=== PATIENT | female | born 1985 | race Caucasian/White ===

== ENCOUNTER 2016-12-09 09:50 | Emergency (ER) | payer MEDICAID ==
[2016-12-09 11:16] LABS: BASOPHIL % 0.5 % (0-2); PLATELET COUNT 246 x10^3mcL (130-400)
[2016-12-09 11:21] LABS: RED CELL DISTRIBUTION WIDTH 17.3 % (11.5-14.5)
[2016-12-09 11:23] LABS: CALCIUM 8.4 mg/dL (8.5-10.1); CARBON DIOXIDE 28.7 mmol/L (21-32); CHLORIDE SERUM 107 mmol/L (98-107); CREATININE SERUM 0.6 mg/dL (0.6-1.0); GFR1 > 60 mL/min; GLUCOSE SERUM 76 mg/dL (74-106); POTASSIUM SERUM 3.9 mmol/L (3.5-5.1); SODIUM SERUM 141 mmol/L (136-145)
[2016-12-09 11:28] LABS: ALBUMIN 3.7 g/dL (3.4-5.0); ALKALINE PHOSPHATASE 49 U/L (46-116); ALT/SGPT 24 U/L (14-59); AST/SGOT 14 U/L (15-37); BILIRUBIN TOTAL 0.4 mg/dL (0.20-1.00); TOTAL PROTEIN, SERUM 7.8 g/dL (6.4-8.2)
[2016-12-09 12:48] VITALS: BP 121/88
== END 2016-12-09 12:48 | disposition home or self-care (01) ==
LOC: ED 09:50
PROVIDERS: Specialist
DX: J45.909 Unspecified asthma, uncomplicated (principal); E66.9 Obesity, unspecified
CPT/HCPCS: 83880; J0171; J2930; J3475; J7030; Q0092

== ENCOUNTER 2019-03-31 15:56 | Emergency (ER) | payer MEDICAID ==
[~2019-03-31] VITALS: Ht 160 cm; Wt 79.4 kg
[2019-03-31 16:11] VITALS: Ht 160 cm; Wt 79.4 kg
[2019-03-31 17:18] LABS: BASOPHIL % 0.5 % (0-2); PLATELET COUNT 212 x10^3mcL (130-400)
[2019-03-31 17:21] LABS: RED CELL DISTRIBUTION WIDTH 16.7 % (11.5-14.5)
[2019-03-31 17:22] LABS: CARBON DIOXIDE 25.4 mmol/L (21-32); CHLORIDE SERUM 104 mmol/L (98-107); CREATININE SERUM 0.6 mg/dL (0.6-1.0); GFR1 > 60 mL/min; GLUCOSE SERUM 81 mg/dL (74-106); POTASSIUM SERUM 3.6 mmol/L (3.5-5.1); SODIUM SERUM 140 mmol/L (136-145)
[2019-03-31 17:38] LABS: microscopic required? YES; urine erythrocyte 1+ (NEGATIVE)
[2019-03-31 18:15] VITALS: BP 118/69
== END 2019-03-31 18:36 | disposition home or self-care (01) ==
LOC: ED 15:56
PROVIDERS: Emergency Medicine
DX: N12 Tubulo-interstitial nephritis, not specified as acute or chronic (principal); J45.909 Unspecified asthma, uncomplicated
CPT/HCPCS: J0696; J7030

== ENCOUNTER 2019-08-02 07:53 | Emergency (ER) | payer MEDICAID ==
[~2019-08-02] VITALS: Ht 162.6 cm; Wt 74.4 kg
[2019-08-02 09:34] VITALS: BP 121/68
== END 2019-08-02 09:30 | disposition home or self-care (01) ==
LOC: ED 07:53
DX: M54.5 Low back pain (principal); J45.909 Unspecified asthma, uncomplicated
CPT/HCPCS: J1885

== ENCOUNTER 2020-04-26 20:46 | Emergency (ER) | payer MEDICAID ==
[~2020-04-26] VITALS: Ht 162.6 cm; Wt 78.9 kg
[2020-04-26 20:52] VITALS: Ht 162.6 cm; Wt 78.9 kg
[2020-04-26 23:01] VITALS: BP 110/76
== END 2020-04-26 23:01 | disposition home or self-care (01) ==
LOC: ED 20:46
DX: U07.1 COVID-19 (principal); J45.909 Unspecified asthma, uncomplicated
CPT/HCPCS: Q0092; U0003-CS